=== PATIENT | female | born 2005 | race Caucasian/White ===

== ENCOUNTER → 2024-04-11 | Outpatient (CLI) | payer OTHER, SELFPAY ==
[2024-04-11 12:54] LABS: Absolute Lymphocyte Count 2.39 X10^3/uL (0.83-4.51); Absolute Neutrophil Count 4.1 X10^3/uL (2.0-7.7); Basophil# 0.03 X10^3/uL; Basophil% 0.4 % (0-1); Eosinophil# 0.16 X10^3/uL; Eosinophils% 2.2 % (0-5); Hematocrit 40.1 % (37-47); Hemoglobin 12.6 g/dL (12.0-15.0); Lymphocyte # 2.39 X10^3/ul (0.83-4.51); Lymphocyte % 33.3 % (19-41); Mean Corp Hgb Conc 31.4 g/dL (32-36); Mean Corpuscular Hgb 26.8 pg (27.0-32.0); Mean Corpuscular Volume 85.3 fL (81-99); Mean Platelet Vol. 9.5 fl (6.2-12.0); Monocyte# 0.46 X10^3/uL; Monocyte% 6.4 % (0-10); NRBC Flagged by Analyzer 0 % (0-5); Neutrophil # 4.11 X10^3/uL (2.7-7.7); Neutrophil % 57.4 % (47-70); Platelet Count 254 K/mm3 (150-450); RBC Distribution Width CV 12.6 % (11.6-14.6); RBC Distribution Width SD 39.2 fl (35.1-43.9); White Blood Count 7.2 K/mm3 (4.4-11.0)
[2024-04-11 13:22] LABS: Hepatitis B Surface Antibody Reactive
[2024-04-11 13:45] LABS: ALB/GLOB Ratio 1.1 RATIO (0.9-2.4); AST(SGOT) 15 U/L (15-37); Alanine Aminotransfer ALT/SGPT 20 U/L (13-56); Albumin, Serum 3.8 g/dL (3.2-5.0); Alkaline Phosphatase 88 U/L (45-117); Anion Gap 6 (5-15); BUN 9 mg/dL (7-18); BUN/Creat Ratio 11.3 RATIO (10-20); Calcium,Total 9.6 mg/dL (8.5-10.1); Chloride 106 mmol/L (98-107); Cholesterol 162 mg/dL (200); EST Glomerular Filtration Rate 97 mL/min (>60); Est Glom Filt Rate - Afr Amer 118 mL/min (>60); Globulin 3.4 g/dL (2.2-4.2); Glucose 98 mg/dL (74-106); High Density Lipoprotein 44 mg/dL; Potassium 4.4 mmol/L (3.5-5.1); Protein, Total 7.2 g/dL (6.4-8.2); Sodium Level 138 mmol/L (136-145); Triglycerides 125 mg/dL; Very Low Density Lipoprotein 25 mg/dL (5-40)
[2024-04-15 19:07] LABS: QNTFERON TB Mitogen Value > 10.00 IU/mL (.); QNTFERON TB Nil Value 0.01 IU/mL (.); QNTFERON TB1+ Ag Value 0.01 IU/mL (.); QNTFERON TB2+ Ag Value 0.01 IU/mL (.); QNTIFERON TB Positive Criteria Negative (Negative)
== END | disposition home or self-care (01) ==
PROVIDERS: PCP Internal Medicine; Referring Provider Physician Assistant; Visit Provider Physician Assistant
DX: Z00.00 Encounter for general adult medical examination without abnormal findings (principal); Z71.85 Encounter for immunization safety counseling
CPT/HCPCS: 36415; 80053; 80061; 85025; 86480; 86706

== ENCOUNTER → 2024-04-30 | Outpatient (CLI) | payer OTHER, SELFPAY ==
[2024-04-30 12:16] LABS: Absolute Lymphocyte Count 2.26 X10^3/uL (0.83-4.51); Absolute Neutrophil Count 4.1 X10^3/uL (2.0-7.7); Basophil# 0.04 X10^3/uL; Basophil% 0.6 % (0-1); Eosinophil# 0.16 X10^3/uL; Eosinophils% 2.3 % (0-5); Hematocrit 39.3 % (37-47); Hemoglobin 12.8 g/dL (12.0-15.0); Lymphocyte # 2.26 X10^3/ul (0.83-4.51); Lymphocyte % 32.6 % (19-41); Mean Corp Hgb Conc 32.6 g/dL (32-36); Mean Corpuscular Hgb 27.4 pg (27.0-32.0); Mean Platelet Vol. 9.3 fl (6.2-12.0); Monocyte# 0.36 X10^3/uL; Monocyte% 5.2 % (0-10); NRBC Flagged by Analyzer 0 % (0-5); Neutrophil # 4.09 X10^3/uL (2.7-7.7); Platelet Count 276 K/mm3 (150-450); RBC Distribution Width CV 12.7 % (11.6-14.6); RBC Distribution Width SD 38.4 fl (35.1-43.9); Red Blood Count 4.68 M/mm3 (4.2-5.4); White Blood Count 6.9 K/mm3 (4.4-11.0)
[2024-04-30 12:55] LABS: ALB/GLOB Ratio 1.1 RATIO (0.9-2.4); AST(SGOT) 11 U/L (15-37); Alanine Aminotransfer ALT/SGPT 20 U/L (13-56); Albumin, Serum 3.8 g/dL (3.2-5.0); Alkaline Phosphatase 90 U/L (45-117); Anion Gap 6 (5-15); BUN 11 mg/dL (7-18); BUN/Creat Ratio 13.4 RATIO (10-20); Calcium,Total 9.5 mg/dL (8.5-10.1); Chloride 106 mmol/L (98-107); Creatinine, Serum 0.82 mg/dL (0.55-1.02); EST Glomerular Filtration Rate 94 mL/min (>60); Est Glom Filt Rate - Afr Amer 113 mL/min (>60); Globulin 3.5 g/dL (2.2-4.2); Glucose 93 mg/dL (74-106); Potassium 4.1 mmol/L (3.5-5.1); Protein, Total 7.3 g/dL (6.4-8.2); Sodium Level 138 mmol/L (136-145)
== END | disposition home or self-care (01) ==
PROVIDERS: Nurse Practitioner; PCP Internal Medicine; Referring Provider Internal Medicine; Visit Provider Internal Medicine
DX: R10.11 Right upper quadrant pain (principal); Z11.59 Encounter for screening for other viral diseases
CPT/HCPCS: 36415; 80053; 85025

== ENCOUNTER → 2024-05-01 | Outpatient (CLI) | payer OTHER, SELFPAY ==
--- NOTE | 2024-05-01 07:19 | US_ITS ---
HISTORY: RUQ abdominal pain. TECHNIQUE: Montez scale and color doppler imaging was performed of the right upper quadrant. 91 images. COMPARISON: None. FINDINGS: LIVER: 14.8 cm in length. Mildly echogenic without focal lesion demonstrated. No intrahepatic ductal dilatation. MAIN PORTAL VEIN: Patent with flow in the appropriate direction. COMMON BILE DUCT: 4 mm in diameter. GALLBLADDER: No gallstones. 3 mm wall thickness. No pericholecystic fluid. Sonographic Lomeli sign negative. PANCREAS: Visualized proximal portion unremarkable. RIGHT KIDNEY: 10.9 cm in length with a cortical thickness of 1.7 cm. No hydronephrosis or gross renal mass demonstrated. US/Liver IMPRESSION: No sonographic evidence of cholelithiasis. Hepatic steatosis. Electronically Signed: Mahogany Ayala MD at 8:31 EDT ,
== END | disposition home or self-care (01) ==
LOC: US 07:19
PROVIDERS: PCP Internal Medicine; Referring Provider Internal Medicine; Visit Provider Internal Medicine
DX: R10.11 Right upper quadrant pain (principal)
CPT/HCPCS: 76705

== ENCOUNTER 2024-09-08 20:46 | Emergency (ER) | payer OTHER, SELFPAY ==
[2024-09-08 20:47] VITALS: BP 163/87; PULSE 106; RESP 18; TEMP 36.7; O2SAT 97; BMI 37.8
--- NOTE | 2024-09-08 20:55 | RAD_ITS ---
PROCEDURE: Left ankle radiographs REASON FOR EXAM: Pain, injury TECHNIQUE: Three views of the left ankle COMPARISON: None FINDINGS: See impression RAD/Ankle min 3 Views IMPRESSION: Negative for acute fracture or malalignment. No significant arthropathy. Reading Location: [facility]
--- NOTE | 2024-09-08 21:36 | EDS_ITS ---
<Statement entered by Joe Addison DO - 09/10/24 07:09> Patient was seen and examined with nurse practitioner Felix All components of the history and physical confirmed and agreed. History of present illness and physical exam: Patient is a 18-year-old female with no known significant past medical history who presented to the emergency department with chief complaint of left ankle pain after falling off her horse and rolling her ankle. Patient states that she had been trying to walk on this however this was very painful for her therefore she came here for the evaluation and management. Patient states that she did not hit her head she did not pass out Review of systems: Agree with above Physical exam: Agree with above MDM Patient is a 18-year-old female who presents to the [facility] with a chief complaint of left ankle pain after falling off her horse and twisting her ankle. On the differential diagnose includes but limited to medial malleolus fracture, lateral malleolus fracture, high ankle sprain. Once workup is obtained reviewed she will be reevaluated. Patient x-ray reviewed by myself by radiology showed no acute fracture or dislocation. Patient was given crutches as well as a ankle stirrup and was advised to ice elevate and rotate Tylenol and ibuprofen [id number] for pain control. She is advised to return with worsening symptoms or concerns otherwise she is to follow-up with her primary care physician outpatient setting. Patient and Garcia members at bedside are agreeable this plan all question concerns answered she is discharged home in stable condition. Final impression: Left ankle pain Ankle sprain Disposition: Patient will be discharged home in stable condition Supervising attending attestation: Joe Addison D.O. [facility] History of Present Illness Chief Complaint: Lower Extremity Injury Narrative Narrative: Patient is a 18-year-old female with no significant medical history presents to the [facility] for left ankle pain after falling off a horse. Patient states that her ankle became inverted, having pain more towards the lateral part of the ankle. Patient denies any other injury. Patient has no recent injury with this ankle. [facility] Medical History History of seizures as a child History of pneumonia as a child Home Medications ?Medication ?Instructions ?Recorded ?Last Taken ?Type NK 06/28/22 Unknown History Allergy/AdvReac Type Severity Reaction Status Date / Time No Known Allergies Allergy Verified 09/08/24 20:49 Family History Sister Anxiety Grandfather Heart disease Hypertension Aunt Seizures Father Diabetes Surgical History Hx of adenoidectomy Hx of tonsillectomy Social History household members: family housing: house current occupational status: employed current occupation: [employer] sexually active: No Smoking Status: Never smoker Electronic Cigarette Use: not used alcohol intake: never substance use type: does not use seatbelt use: always do you feel safe at home: Yes ROS ROS ED ROS Narrative Constitutional: Negative for fever, chills, weight loss, weakness Eyes: Negative for vision loss, vision change, double vision ENT: Negative for any sore throat, ear pain, congestion Cardiovascular: Negative for any chest pain, tightness, palpitations Respiratory: Negative for any cough, sputum production, hemoptysis, dyspnea, dyspnea on exertion, orthopnea Gastrointestinal: Negative for any abdominal pain, nausea, vomiting, diarrhea, constipation, blood in stool, blood in vomit : Negative for any urinary frequency, dysuria, retention, blood in urine Muscle skeletal: Negative for any neck pain, back pain. Positive for left ankle pain Neurological: Negative for any headache, syncope, dizziness Skin: Negative for any rashes, itching, abrasions, lacerations Psychiatric: Negative for any depression, anxiety, stress, suicidal ideation, homicidal ideation Hematologic: Negative for any excessive bruising, easy bleeding EXAM Physical Exam Narrative Exam Narrative: Vital signs reviewed. Extremities: Patient does have some edema to the lateral malleolus, some pain on palpation. No pain along the fifth metatarsal. Intact Achilles tendon, +2 pedal pulse. Worsening pain with flexion extension. No pain to the medial malleolus.. Active full range of motion of all extremities. Neuro: Cranial nerves II through XII intact, no focal neurological deficits. Skin: Clean dry and intact with no rash, purpura, petechiae, vesicles or pustules. Backs/flank: No CVA tenderness, no midline spinal tenderness, no deformity. Psych: Normal mood and affect. No SI, HI or acute psychosis. Const Vital Signs: 09/08/24 20:47 Temperature 98.0 F Temperature Source Temporal Pulse Rate 106 H Respiratory Rate 18 Blood Pressure 163/87 H Blood Pressure Mean 112 Pulse Ox 97 Oxygen Delivery Method Room Air Positive well nourished and well developed General Appearance ED: well developed [facility] MDM Radiography Diagnostic Testing: Clinical Impression(s) from Imaging Studies Ankle X-Ray 09/08/24 20:55 IMPRESSION: Negative for acute fracture or malalignment. No significant arthropathy. Reading Location: [facility] Treatment and Re-Evaluation :: Differential diagnosis includes however is not limited to: Bimalleolar fracture, lateral malleolus fracture, foot fracture ankle sprain Patient appears generally well, vital signs are stable, patient is nontoxic- appearing. Presenting the emergency department complaints of left ankle pain after falling off a horse. Patient's x-ray of the left ankle shows negative for any acute fracture or malalignment. No significant arthropathy. Patient be given crutches, ankle stirrup, will take ibuprofen as needed. Instructed ice and elevate. All questions answered, stable for discharge. Patient tolerated ibuprofen well Discharge Plan Triage Chief Complaint: Lower Extremity Injury ED Midlevel Provider: Felix Baldwin ED Provider: Joe Addison Dx/Rx/DC Orders Clinical Impression: Ankle sprain Instructions: ED Ankle Sprain (Adult) Prescriptions: No Action NK Primary Care Provider: Pastora Rockwell Referrals: Pastora Rockwell MD [Primary Care Provider] - Activity Restrictions/Additional Instructions: Use your crutches as needed, ankle sprain for 1 week. Ensure that you ice and elevate. Use [id number] ibuprofen and Tylenol. Print Language: Polish Disposition Disposition: Home, Self Care
[2024-09-08] MEDS: Ibuprofen 600 MG Tablet PO (21:58)
== END 2024-09-08 22:09 | disposition home or self-care (01) ==
PROVIDERS: Emergency Provider Emergency Medicine; PCP Internal Medicine; Visit Provider Emergency Medicine
DX: S93.402A Sprain of unspecified ligament of left ankle, initial encounter (principal); V80.919A Animal-rider injured in unspecified transport accident, initial encounter
CPT/HCPCS: 73610; 99284; A4216